=== PATIENT | female | born 1965 | race African-American/Black ===

== ENCOUNTER 2018-03-27 06:53 | Day surgery (SDC) | payer OTHER ==
[2018-03-26 10:06] VITALS: BMI 24.2
--- NOTE | 2018-03-27 08:06 | HP ---
History & Physical Update - History History: No Change - Physical Physical: No Change - Assessment Assessment: No Change - Plan Plan: No Change
--- NOTE | 2018-03-27 08:09 | OP ---
Operative Note - Note: Operative Date: 03/27/18 Pre-Operative Diagnosis: R renal calculus Operation: ESWL R Findings: 1 cm radiopaque R UPJ calculus w R JJ stent Post-Operative Diagnosis: Same as Pre-op Surgeon: Rylan Morales Anesthesia: Fractional Estimated Blood Loss (mls): 0 Drains & Tubes with Location: R JJ stent Operative Report Dictated: Yes
[2018-03-27] MEDS ORDERED: MIDAZOLAM HCL 2 MG/2 ML SINGLE DOSE VIAL ONE ×2 (08:19→08:40)
--- NOTE | 2018-03-27 08:59 | OP ---
DATE OF OPERATION: 03/27/2018 PREOPERATIVE DIAGNOSIS: Right renal calculus. POSTOPERATIVE DIAGNOSIS: Right renal calculus. PROCEDURE: Extracorporeal shock wave lithotripsy of right renal calculus. SURGEON: Rylan Blackmon MD PUBLIC INFORMATION COORDINATOR: None. ANESTHESIA: IV sedation. ANESTHESIOLOGIST: Sky Eubanks MD SPECIMENS: None. CULTURES: None. DRAINS: A right double-J stent. ESTIMATED BLOOD LOSS: None. COMPLICATIONS: None. DESCRIPTION OF PROCEDURE: Patient was brought in the operating room, placed on the operating table in the supine position. After the administration of intravenous sedation, patient was positioned over the treatment head, and under fluoroscopic guidance, a 1-cm radiopaque right renal pelvic calculus was identified, targeted, and delivered 2500 shocks at maximum kilovoltage with excellent fragmentation. She tolerated the procedure well, transferred to the recovery room in stable condition. RYLAN BLACKMON M.D. BERNA/[id number]
[2018-03-27 09:16] VITALS: TEMP 97.7
[2018-03-27 14:03] VITALS: BP 125/62; PULSE 75
== END 2018-03-27 12:10 | disposition home or self-care (01) ==
LOC: JASU-SURG 06:53
PROVIDERS: ATTEND Urology
PROC: 0TF3XZZ Fragmentation in Right Kidney Pelvis, External Approach (ICD-10-PCS; principal; 2018-03-27 08:45)
DX: N20.0 Calculus of kidney (principal)

== ENCOUNTER 2018-07-31 05:16 | Day surgery (SDC) | payer OTHER ==
[2018-07-30 09:25] VITALS: BMI 24.5
--- NOTE | 2018-07-31 08:03 | HP ---
History & Physical Update - History History: No Change - Physical Physical: No Change - Assessment Assessment: No Change - Plan Plan: No Change
--- NOTE | 2018-07-31 08:10 | OP ---
Operative Note - Note: Operative Date: 07/31/18 Pre-Operative Diagnosis: R renal calculus Operation: ESWL R Findings: R renal calc Post-Operative Diagnosis: Same as Pre-op Surgeon: Rylan Morales Anesthesiologist/CRANE HOIST OR LIFT OPERATOR: Krystyna Stephen Anesthesia: Fractional Estimated Blood Loss (mls): 0 Operative Report Dictated: Yes
[2018-07-31] MEDS ORDERED: MIDAZOLAM HCL 2 MG/2 ML SINGLE DOSE VIAL ONE (09:20)
[2018-07-31] MEDS ORDERED: DEXAMETHASONE SOD PHOSPHATE 4 MG/1 ML VIAL ONE (09:25)
--- NOTE | 2018-07-31 10:28 | OP ---
DATE OF OPERATION: 07/31/2018 PREOPERATIVE DIAGNOSIS: Right renal calculi. POSTOPERATIVE DIAGNOSIS: Right renal calculi. PROCEDURE: Extracorporeal shockwave lithotripsy, right renal calculi. SURGEON: Rylan Blackmon MD WELL LOGGER: None. ANESTHESIA: IV sedation. ANESTHESIOLOGIST: SPECIMENS: None. CULTURES: None. DRAINS: None. ESTIMATED BLOOD LOSS: None. COMPLICATIONS: None. DESCRIPTION OF PROCEDURE: The patient was brought into the operating room placed on the operating table in supine position. After administration of intravenous sedation, patient was positioned over the treatment , and under ultrasound guidance, several 3- to 4-mm right lower pole and mid renal calculi were identified, targeted, and delivered 2500 shocks at maximum kilowattage with excellent fragmentation. Patient tolerated the procedure well, transferred to the recovery room in stable condition. RYLAN BLACKMON M.D. BERNA/[id number]
[2018-07-31 12:14] VITALS: BP 100/62; PULSE 60; TEMP 98
== END 2018-07-31 12:56 | disposition home or self-care (01) ==
LOC: JASU-SURG 05:16
PROVIDERS: ATTEND Urology
PROC: 0TF3XZZ Fragmentation in Right Kidney Pelvis, External Approach (ICD-10-PCS; principal; 2018-07-31 08:00)
DX: N20.0 Calculus of kidney (principal)